=== PATIENT | male | born 1985 | race Caucasian/White ===

== ENCOUNTER 2020-01-30 19:03 | Emergency (ER) | payer SELFPAY ==
[~2020-01-30] VITALS: Ht 162.6 cm; Wt 63.5 kg
--- NOTE | 2020-01-30 19:03 | NUR ---
PT BIBA BLS TO ER BED 10
[2020-01-30 19:06] VITALS: BP 118/71
--- NOTE | 2020-01-30 19:15 | NUR ---
34YO MALE HOMELESS BIBA C/O GENERALIZED WEAKNESS X TODAY. PER EMS BLOOD SUGAR 126. PT DENIES ANY FEVER, CP, SOB, OR COUGH AT THIS TIME; PATIENT STATES PAIN OF 0/10 AT THIS TIME; VSS; PATIENT POSITIONED FOR COMFORT; HOB ELEVATED; BEDRAILS UP X1; BED DOWN. ER MD MADE AWARE OF PT STATUS.
--- NOTE | 2020-01-30 20:50 | NUR ---
FOOD AND DRINK PROVIDED TO PT.
[2020-01-30 20:56] VITALS: BP 132/75
--- NOTE | 2020-01-30 20:56 | NUR ---
Patient discharged with v/s stable. Written and verbal after care instructions given and explained. Patient alert, oriented and verbalized understanding of instructions. Ambulatory with steady gait. All questions addressed prior to discharge. ID band removed. Patient advised to follow up with PMD. Rx of Metformin given. Patient educated on indication of medication including possible reaction and side effects. Opportunity to ask questions provided and answered.
== END 2020-01-30 20:56 | disposition home or self-care (01) ==
LOC: MED 19:03
DX: R53.81 Other malaise (principal); E11.65 Type 2 diabetes mellitus with hyperglycemia; F17.210 Nicotine dependence, cigarettes, uncomplicated
CPT/HCPCS: 93005; 99283